=== PATIENT | female | born 1995 | race Caucasian/White ===

== ENCOUNTER 2020-04-10 14:49 | Emergency (ER) | payer OTHER, SELFPAY | END 2020-04-10 15:09 | disposition left against medical advice (07) | LOC: EXPBETH 14:54 | PROVIDERS: Emergency Provider Nurse Practitioner Family | DX: Z53.21 Procedure and treatment not carried out due to patient leaving prior to being seen by health care provider (principal) | CPT/HCPCS: 99199 ==

== ENCOUNTER 2025-02-06 02:00 | Day surgery (SDC) | payer OTHER, SELFPAY ==
--- NOTE | 2025-01-24 15:21 | SUR.PREOP ---
[facility] has started construction of its new state of the art ER which will open Spring 2026. With this, we anticipate parking may be a challenge for some our surgical patients and families. Parking spaces are limited but are available for all Surgical, obstetrics, and ER patients sharing this lot. If you arrive and find you are having a hard time finding a parking space, please note that we understand the challenges, please drive around the hospital and park near Hospital Entrance 1. When you enter this entrance, you can ask a volunteer to direct or take you back to the surgical waiting area to check in. We appreciate everyone?s understanding of these expected challenges while we build for your future. Report to the Outpatient Waiting Room, entrance under the green pavilion located off [address], at time _6am_ on date _02/06/25_. Planned Procedure Time: _730am_.? Time changes happen often and if your time is changed the preop area will call you the afternoon before. - You and your visitor will be asked to self-screen and do not enter if you have any COVID symptoms. Please call surgeon if you need to reschedule. - A mask is optional within the hospital at this time. Patients may have clear liquids (water, carbonated beverages, clear teas, apple juice) until 3 hours prior to surgery with a maximum of 20 ounces. - No food from midnight until time of surgery and no smoking, or chewing tobacco (or any form of nicotine). No chewing gum, candy or mints. Take only the following medications with a SIP of water on the morning of surgery: __None___ DO NOT STOP ANY OF YOUR OTHER PRESCRIPTION MEDICATIONS PRIOR TO SURGERY EXCEPT THE FOLLOWING Hold all vitamins and supplements for 3 days per anesthesiologist. Medications to discontinue per physician __None___ Date to take last dose__02/02/25___ Please no make-up, nail hungarian, hairspray, perfume, deodorant, or body powder the day of surgery.? No jewelry (including any body piercings) or valuables the day of surgery, leave them at home.? Please take a shower or bath the night before, or the morning of, surgery with an antibacterial soap.? Wear comfortable, loose fitting clothing.? - Jewelry must be removed prior to entering the operating room.? Rings and piercings that are not removed may be cut off. - The hospital will not accept responsibility for valuables.? - Please leave all valuables, including medications, at home the day of surgery. If you are going home after surgery, a licensed bellman driver must drive you home.? - NO public transportation without another adult if you receive anesthesia. - We recommend that an adult stay with you for 24 hours following discharge. - We also recommend that you do not drive, make important decision, drink alcoholic beverages, or take any drugs that were not prescribed by your health care provider for at least 24 hours after your discharge time. Follow any additional instructions given to you from your surgeon. Telephone instructions given to _Morgan__and asked if any additional questions and then verbalized understanding. Patient advised to call surgeon office or pre surgery nurse liaison [phone] if any additional questions.
[2025-01-24 15:50] VITALS: BMI 24.3
[2025-02-06] VITALS (10 sets, daily range): BP systolic 92–106; BP diastolic 44–64; PULSE 76–93; RESP 13–19; TEMP 36.3–36.6; O2SAT 96–100
--- OUTSIDE RECORDS SUMMARY | 2025-02-06 03:10 | XMS_ITS | Clinical Summary ---
Author Organization [facility] Address [address] [place] [address] Care Team Providers Care Production Operator Name Role Phone José Taylor MD Primary Care Provider Source Comments [facility],non-owned Affiliates and Associated Physician Practices is amultiple site organization consisting of ambulatory clinics and hospital sitesin [place], [place], [place] and [place]. This disclosure is being madepursuant to the Care Everywhere program and may not contain all information available regarding this patient. Last updated 17.[facility] Allergies No known active allergies Medications * Be aware that medications may not be up to date on this document. Alwaysverify current medications with the patient. COPPER PO was placed case briefer 10/20/2012 Active benzonatate (TESSALON) 200 MG capsule Take 1 capsule by mouth 3 times daily as needed for Cough 30 capsule 03/20/2018 Active Social History Tobacco Use Types Packs/Day Years Used Date Smoking Tobacco: Never Assessed Comments Unknown Sex and Gender Information Value Date Recorded Sex Assigned at Not on file Legal Sex Female 5:38 PM PERSONNEL COUNSELOR Gender Identity Not on file Sexual Orientation Not on file Last Filed Vital Signs Vital Sign Reading Time Taken Comments Blood Pressure 100/62 03/20/2018 11:16 AM PERSONNEL COUNSELOR Pulse 85 03/20/2018 11:16 AM PERSONNEL COUNSELOR Temperature 36.8 C (98.2 F) 03/20/2018 11:16 AM PERSONNEL COUNSELOR Respiratory Rate - - Oxygen Saturation 98% 03/20/2018 11:16 AM PERSONNEL COUNSELOR Inhaled Oxygen Concentration - - Weight 68 kg (150 lb) 03/20/2018 11:16 AM PERSONNEL COUNSELOR Height 170.2 cm (5' 7) 03/20/2018 11:16 AM PERSONNEL COUNSELOR Body Mass Index 23.49 03/20/2018 11:16 AM PERSONNEL COUNSELOR Plan of Treatment Health Maintenance Due Date Last Done Comments HIV SCREENING 2008 HEPATITIS C SCREENING 10/10/2011 DTAP/TDAP/TD VACCINES (1 - Tdap) 2012 HEPATITIS B VACCINE (1 of 3 - 19+ 3-dose series) 2012 PAP SMEAR 2014 HPV VACCINE (1 - 3-dose SCDM series) 2020 Cervical Cancer Screening 10/15/2023 PAP with HPV 10/15/2023 DEPRESSION SCREENING 03/22/2024 COVID-19 VACCINE (1 - 2024-2 6 season) 2024 INFLUENZA VACCINE (#1) 2024 ZOSTER VACCINE (1 of 2) 10/15/2043 HIB VACCINE Aged Out No longer eligi ble based on patient's age to complete this topic MENINGOCOCCAL (Group B) VACC INE SHARED DECISION-MAKING Aged Out No longer eligibl e based on patient's age to complete this topic MENINGOCOCCAL GROUPS A/C/Y/W VACCINE Aged Out No longer eligible b ased on patient's age to complete this topic PNEUMOCOCCAL VACCINE Aged Out No long er eligible based on patient's age to complete this topic Insurance [facility] Care Teams Production Operator Relationship Specialty Start Date End Date José Taylor MD [address] [place] [address] PCP - General Internal Medicine 03/20/18
--- OUTSIDE RECORDS SUMMARY | 2025-02-06 03:11 | XMS_ITS | Encounter Summary ---
Author Organization [facility] Healthcare Address [address] [place] [address] Care Team Providers Care Muck Farmer Name Role Phone Hal Clarke MD Primary Care Provider [phone] Yoan Chirstianson MD Unavailable [phone] Luis Collins MD Unavailable Encounter Details Date Type Department Care Team (Late st Contact Info) Description 01/08/2025 Results Follow-Up [facility] Medical Group Primary Care at [address] [id number] Hal Clarke MD [address] [place] [address] [address] [place] [address] CBC with auto differential, Comprehensive metabolic panel, Thyroid Function Travis, Additional followed-up results: 2 Social History Tobacco Use Types Packs/Day Years Used Date Smoking Tobacco: Never Smokeless Tobacco: Never Alcohol Use Standard Drinks/Week Comments Yes 0 (1 standard drink = 0.6 oz pur e alcohol) Humiliation, Afraid, Rape, and Kick questionnair e Answer Date Recorded Within the last year, have y ou been afraid of your partner or ex-partner? No 04/15/2020 Within the last year, have y ou been humiliated or emotionally abused in other ways by your partner or ex-partner? No Within the last year, have y ou been kicked, hit, slapped, or otherwise physically hurt by your partner or ex-partner? No 04/15/2020 Within the last year, have y ou been raped or forced to have any kind of sexual activity by your partner or ex-partner? No 04/15/2020 Social Connection and Isolation Panel Answer Date Recorded In a typical week, how many times do you talk on the phone with family, friends, or neighbors? More than three times a week 04/15/2020 How often do you get togethe r with friends or relatives? Three times a week 04/15/2020 Attends Taoism Services Not on file 04/15 Active Member of Clubs or Organizations Not on f ile 04/15/2020 Attends Club or Organization Meetings Not on vance e 04/15/2020 Are you , , di vorced, , never , or living with a partner? 04/15/2020 PHQ-2 Answer Date Recorded PHQ-2 Total Score (If total score is 3 or more points, staff should administer the PHQ-9) 0 09/18/2024 Housing Stability Vital Sign Answer James e Recorded In the last 12 months, was t here a time when you were not able to pay the mortgage or rent on time? No 04/15/2020 Number of Places Lived in the Last Year Not on f ile 04/15/2020 In the last 12 months, was t here a time when you did not have a steady place to sleep or slept in a skilled nursing (including now)? No 04/15/2020 Education Answer Date Recorded What is the highest level of school you have completed or the highest degree you have received? Bachelor's degree (e.g., BA, AB, BS) 04/15/2020 Comments No Sex and Gender Information Value Date Recorded Sex Assigned at Not on file Legal Sex Female 5:23 PM LEAF COVERER Gender Identity Female 02/03/2021 8:22 PM LEAF COVERER Sexual Orientation Straight 08/18/2020 8: 08 PM CDT Occupation Industry Job Start Date Job End Date accounting Not on file Not on file Not on file documented as of this encounter Functional Status * BP Location Answer Date of Assessment Author Left arm 01/08/2025 9:39 AM CDT Diane Merlos MA * BP Location Answer Date of Assessment Author Left arm 01/08/2025 9:39 AM CDT Diane Merlos MA documented as of this encounter Plan of Treatment Not on file documented as of this encounter Visit Diagnoses Not on filedocumented in this encounter Care Teams Muck Farmer Relationship Specialty Start Date End Date Hal Clarke MD [address] [place] [address] PCP - General Family Medicine 04/15/20 Yoan Christianson MD [address] [place] [address] Consulting Physician Obstetrics and Gynecology 07/23/20 Luis Collins MD [address] [place], [place] [id number] Consulting Physician General Surgery 07/23/20 documented as of this encounter
--- OUTSIDE RECORDS SUMMARY | 2025-02-06 03:11 | XMS_ITS | Clinical Summary ---
Author Organization [facility] [address] Address [address] [place] [address] Phone Care Team Providers Care Outboard Motor Inspector Name Role Phone Hal Clarke MD Primary Care Provider Yoan Christianson MD Unavailable [phone] Luis Collins MD Unavailable Allergies No known active allergies Medications No known medications Active Problems Problem Noted Date Diagnosed Date Preoperative evaluation to r edvine out surgical contraindication 01/08/2025 Annual physical exam 09/18/2024 Assessment & Plan (09/18/2024 1:30 PM CDT): -Recommended: Healthy diet. Avoiding junk food/fast food. -30 minutes of exercise most days of the week. Increase to 45 minutes for weight loss. Health Maintenance reviewed - due for tdap, recommended. -Influenza vaccine every year Recommend: - Topic Date Due DTaP/Tdap/Td Vaccine (8 - Td or Tdap) 08/20/2022 -F/u in 1 year for Annual PE or sooner if needed Thrombocytopenia 09/18/2024 Assessment & Plan (09/18/2024 1:30 PM CDT): Platelets have been in the 130's for last 3 years. Still 133. Stable. Asymptomatic. Not on any medications. Will check a peripheral smear. Consider future referral to hematology as needed. Orders: CBC with auto differential; Future peripheral smear, slide review, pathology - Miscellaneous Test; Future HIV 1/2 Antibody plus p24 Antigen Blood; Future Family history of Liana thyroiditis 08/21/19 21 Grade III hemorrhoids 05/02/2020 Overview (05/02/2020): Added automatically from request for surgery [id number] Assessment & Plan (07/18/2020 8:55 AM CDT): With her having bowel movements every 3rd day she likely had a slightly harder stool that cause a small mucosal break at 1 of the prior hemorrhoid excision sites. This is likely lead to some irritation and raw surface that has bled and now the intermittent clots. Everything else appears to be healing well. I am going to try her on a different medication to see if we can get her bowel movements a little bit more regular. She will do Sitz baths for comfort to try and help with the pain. I would like to give this a couple weeks to see if the mucosa will heal. If not we have discussed examining her under anesthesia and some other mucosal back shot. However without regular bowel movements I fear that would just break open again. She is going to check back in with us in a week or 2 to update us on how the spotting is going. Assessment & Plan (06/06/2020 12:59 PM CDT): Now that she is off full dose anticoagulation I expect the bleeding will continue to stop. We discussed last time that she had all 3 hemorrhoidal columns involved in all were significantly enlarged. Compared to initial on exam today things are markedly improved. There is still a small little remnant that I favor with time may continue to shrink down and not cause any further problems. She understands that the next few months if things continue to be bothersome we may have to go back to take this 1. For now continue stool softener to shoot for daily soft bowel movements without straining. Diet as tolerates. We will see her back again in 6 weeks to re- evaluate History of COVID-19 04/15/2020 Heterozygous factor V Leiden mutation 04/15/2020 Assessment & Plan (09/18/2024 11:23 AM CDT): Uses lovenox during and post-op. She is planning an abdominoplasty and breast augmentation in January with Dr. Russell at [place]. Will need to start lovenox again post surgery. [facility] will be contacting us for directions on lovenox. Assessment & Plan (07/23/2020 9:28 AM CDT): Add low-dose aspirin (81 mg daily), with caveats: low quality evidence supporting this (not as much research showing decreased DVT risk supporting adding it for heterozygous Factor V Leiden), may increase bruising, and if there is bleeding it may worsen it. Assessment & Plan (04/25/2020 1:58 PM ANIMAL KEEPER HEAD): I will discuss with her primary care physician if they would like any form of anticoagulation in the mary lou or postoperative time periods Resolved Problems Problem Noted Date Diagnosed Date Resolved Date Dizziness 01/02/2021 09/18/2024 Assessment & Plan (01/02/2021 1:06 PM CDT): I do wonder if it is a migraine-equivalent. This will need to be considered, though I'm not convinced that is what is happening. For start, we will check thyroid and blood panels again. Neuroimaging may be needed eventually, especially if there is a worsening, but right now I am leaning against. Slow transit constipation 11/26/2020 Assessment & Plan (11/26/2020 1:28 PM CDT): Advising starting a probiotic supplement Advise also increase fiber intake, the goal would be 25-35 g per day. Difficult goal, to be sure. Continuing Linzess 145 mg daily Rash 11/26/2020 09/18/2024 Assessment & Plan (11/26/2020 1:28 PM CDT): If rash starts to resume, we will try to resume oral steroids at a longer taper and refer to dermatology. The area noted on the ankle cells itself as a tinea infection, continue Lotrisone x 4 weeks total. If not improving, may need biopsy Hypotension 08/22/2020 09/18/2024 Assessment & Plan (02/07/2021 1:53 PM ANIMAL KEEPER HEAD): BP journal x 1 week Assessment & Plan (08/22/2020 9:28 AM CDT): BP is lower than usual baseline at first pass, but is better upon recheck. Advised to continue efforts to stay hydrated, perhaps small amount of salt in meals added might help (no more than a pinch here and there, or an extra teaspoon a day). Irritable bowel syndrome with constipation 07/23/2020 09/18/2024 Assessment & Plan (01/02/2021 1:07 PM CDT): Linzess is the established treatment, but higher dose might be necessary as it is not totally controlled. will consider referral to GI Assessment & Plan (07/23/2020 9:29 AM CDT): Family history positive Increase dietary fiber, slowly, with a goal to 20-30 grams per day. That should be spread through the day, rather than all at once. High-fiber options should be included with all meals (approximately 5-10 grams per meal, for instance). Continue good hydration (reported at 64 oz per day) Biliary dyskinesia 05/02/2020 Overview (05/02/2020): Added automatically from request for surgery [id number] Assessment & Plan (05/30/2020 9:58 AM ANIMAL KEEPER HEAD): Continue diet as tolerates. Continue Sitz baths for comfort. Given the size of her hemorrhoids I am not surprised she still having a little bit of spotting. We will see her back next week to reassess. Hold off on return to work until that time given her symptoms Postprandial RUQ pain 04/25/20202020 Assessment & Plan (04/25/2020 1:58 PM ANIMAL KEEPER HEAD): The patient has classic symptoms of gallbladder pathology. Just for completeness we will wait for her HIDA scan to be completed on February 10th. However even if this would return normal given the right upper quadrant pain associated with fatty meals with the radiation to the back she would benefit from cholecystectomy. Risks and benefits have been explained to include post cholecystectomy diarrhea. Bleeding hemorrhoid 04/25/2020 06/07/19 Assessment & Plan (04/25/2020 1:59 PM ANIMAL KEEPER HEAD): The patient has symptomatic hemorrhoidal disease. Given the large external components we will set her up for excision at the same time as the gallbladder. We have discussed about postoperative expectations and pain to be expected. All questions have been answered. 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 The literature states that it can lower the blood pressure in less than 1% of the patients to take it. Given that the mood is controlled, would hopefully not have to reduce or stop it. Assessment & Plan (05/01/2020 2:29 PM ANIMAL KEEPER HEAD): Staying on current regimen Valerian and melatonin are helping. I may want to discontinue the melatonin in 2 months Surgery being planned as well, should be low risk Viral upper respiratory tract infection 12/31/2016 04/15/2020 Neck pain 09/28/2015 04/15/2020 Overview (06/26/2016): Cervicalgia Mass of breast 05/17/2015 09/18/2024 Encounters Date Type Department Care Team Description 01/25/2025 Telephone [facility] Primary Care at [address] [address] Hal Clarke MD Medical Records Request 01/08/2025 10:15 AM CDT Lab [address] [address] Preoperative evaluation to rule out surgical contraindication; Bradycardia; Screening for thyroid disorder 01/08/2025 10:13 AM CDT - 01/08/2025 11:59 PM CDT Hospital Encounter [address] [address] Discharge Disposition: Discharge to home or self care 01/08/2025 9:30 AM CDT Office Visit [facility] Primary Care at [address] [address] Hal Clarke MD Preoperative evaluation to rule out surgical contraindication (Primary Dx); Bradycardia; Screening for thyroid disorder 01/08/2025 Results Follow-Up [facility] Primary Care at [address] [address] Hal Clarke MD CBC with auto differential, Comprehensive metabolic panel, Thyroid Function [place], Additional followed-up results: 2 from Last 3 Months Immunizations Immunization Administration Dates Next Due DTP 06/03/1998, 6,04/10/1994,02/09,1993 HPV, Quadrivalent 05/07/2011,01/08/2011,11/14/19 11 Hep B, Adolescent or Pediatric 07/10/1994,1993,1993 Hib (HbO) 04/16/1995, 5,02/09/1994,12/12 Influenza, Quadrivalent, Spl it, Preservative Free, Intramuscular 02/04/2021,12/15/2016 Influenza, Split 02/08/2013 Influenza, Unspecified 04/15/2020(Deferred: Loren ent Refused) MMR 06/03/1998,01/15/1995 Meningococcal Polysaccharide (Menomune) 07/08/2005 OPV 06/03/1998, 5,02/06/1994,12/12 Tdap 08/20/2012,07/27/2007 Varicella 10/25/2006,10/16/1996 Surgical History Surgery Date Site/Laterality Comments OTHER SURGICAL HISTORY 03/22/2013 - 03/21/2014 TONSILL/ ADENOIDECTOMY TONSILLECTOMY 03/22/2013 - 03/21/2014 Bilateral SECTION 03/22/2012 - 03/21/2013 CHOLECYSTECTOMY 05/22/2020 HEMORRHOID SURGERY 05/22/2020 Medical History Medical History Date Comments Factor 5 Leiden mutation, heterozygous 2012 Hemorrhoids History of COVID-19 04/15/2020 Family History Medical History Relation Name Comments Hyperlipidemia Father Dad Hyperlipidemi a; Hypertension Father Dad Hypertension; Diabetes Maternal Grandfather Grandma C Diabete s mellitus; Hypertension Maternal Grandfather Grandma C Hyperte nsion; Bleeding Disorder Maternal Grandmother Grandma C Diabetes Maternal Grandmother Grandma C Diabete s mellitus; Asthma Mother Mom Asthma; Hyperlipidemia Mother Mom Hyperlipidemi a; Hypothyroidism Mother Mom Irritable bowel syndrome Mother Mom Colon cancer Other Liana's thyroiditis Other cous in, aunt Coronary artery disease Paternal Grandfather Grandpa Coronary artery disease; Diabetes Paternal Grandfather Grandpa Diabete s mellitus; COPD Paternal Grandmother Grandma Diabetes Paternal Grandmother Grandma Diabete s mellitus; Heart disease Paternal Grandmother Grandma Heart disease; Hypertension Paternal Grandmother Grandma Hyperte nsion; obese Sister 1 Depression Sister 2 Younger sister Relation Name Status Comments Father Dad Maternal Grandfather Grandma C Maternal Grandmother Grandma C Mother Mom Other Paternal Grandfather Grandpa Alive Paternal Grandmother Grandma Sister 1 Alive Sister 2 Younger sister Alive Social History Tobacco Use Types Packs/Day Years Used Date Smoking Tobacco: Never Smokeless Tobacco: Never Tobacco Cessation:Counseling Given: Not Answered Alcohol Use Standard Drinks/Week Comments Yes 0 [...] relatives? Three times a week 04/15/2020 Attends [employer] Services Not on file 04/15 Active Member [...] place to sleep or slept in a custodial (including now)? No 04/15/2020 Education Answer Date Recorded What is the highest level of school you have completed or the highest degree you have received? 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 Not on file Not on file Not on file Obstetrics History Para Term AB IAB SAB Ectopic Multiple Livin g Live Births 1 1 1 1 2 2 Date Outcome GA Total Labor Labor/2nd/3rd Weight Sex Type Anes PTL Martine A1 A5 Name Clin 2013 F Living 2013 F Y Living Complications:Factor 5 Leide n mutation, heterozygous Last Filed Vital Signs Vital Sign Reading Time Taken Comments Blood Pressure 110/70 01/08/2025 9:39 AM CDT Pulse 64 01/08/2025 9:39 AM CDT Temperature 37.2 C (98.9 F) 01/08/2025 9:39 AM CDT Respiratory Rate 16 01/08/2025 9:39 AM CDT Oxygen Saturation 98% 01/08/2025 9:39 AM CDT Inhaled Oxygen Concentration - - Weight 73.5 kg (162 lb) 01/08/2025 9:39 AM CDT Height 170.2 cm (5' 7) 01/08/2025 9:39 AM CDT Body Mass Index 25.37 01/08/2025 9:39 AM CDT Plan of Treatment Health Maintenance Due Date Last Done Comments DTaP/Tdap/Td Vaccine (8 - Td or Tdap) 08/20/2022 08/20/2012, 07/27/2007, 06/03/1998, Additional history exists Cervical Cancer Screening 02/16/2023 02/16/2022 Influenza Vaccine (#1) 2024 , 12/15/2016, 02/08/2013 Depression Screening 09/18/2025 09/18/2024, 11/25/2021, 12/30/2020, Additional history exists Regular Well Visit/Exam 18-64 09/18/2025 09/18/2024 Covid-19 Vaccine ( season) 2026 11/14/2020, 10/24/2020 Postponed from 11/20/2024 (Patient declined, but will receive in the future) Hepatitis B Screening Completed 07/10/1994 , 1993, 1993 Varicella Vaccines Completed 10/25/2006, 10/16/1996 HPV Vaccines Completed 05/07/2011, 12/21, 11/13/2010 Hepatitis C Screening Completed 09/18/2024 Pneumococcal vaccine <65 Aged Out No longer eligible based on patient's age to complete this topic Procedures Procedure Name Priority Date/Time Associated Diagnosis Comments EGFR Routine 01/08/2025 10:34 AM CDT Preoperative evaluation to rule out surgical contraindication DIFFERENTIAL AUTO Routine 01/08/2025 10: 34 AM CDT Preoperative evaluation to rule out surgical contraindication THYROID FUNCTION CASCADE Routine 01/08/2025 10:34 AM CDT Bradycardia Screening for thyroid disorder COMPREHENSIVE METABOLIC PANEL Routine 01/08/2025 10:34 AM CDT Preoperative evaluation to rule out surgical contraindication CBC WITH AUTO DIFFERENTIAL Routine 01/08/2025 10:34 AM CDT Preoperative evaluation to rule out surgical contraindication XR CHEST PA LATERAL 2 VIEWS Routine 01/08/2025 10:31 AM CDT Preoperative evaluation to rule out surgical contraindication ECG 12-LEAD Routine 01/08/2025 10:04 AM CDT Bradycardia HEPATITIS C ANTIBODY Routine 09/18/2024 11:28 AM CDT Need for hepatitis C screening test Encounter for hepatitis C screening test for low risk patient HM PAP SMEAR Routine 02/16/2022 from Last 3 Months or Most Recently Relevant to Health Maintenance Results * eGFR (01/08/2025 10:34 AM CDT) eGFR >90 >=60 mL/min/1. 73 m2 Comment: Interpretive Data Reference Interval Normal >/= 90 mL/min/1.73m2 Mildly decreased* 60 - 89 mL/min/1.73m2 Mildly to moderately decreased 45 - 59 mL/min/1.73m2 Moderately to severely decreased 30 - 44 mL/min/1.73m2 Severely decreased 15 - 29 mL/min/1.73m2 Kidney Failure < 15 mL/min/1.73m2 *Relative to young adult level Estimated glomerular filtration rate is determined by the 2020 CKD-EPI equation recommended by the National Kidney Foundation (A Unifying Approach to GFR Estimation: Recommendations of the NKF-ASK Task Force on Reassessing the Inclusion of Race in Diagnosing Kidney Disease, JASN 2020). The CKD-EPI equation should not be used for patients with unstable renal function and has not been validated in children and those over 70. Current interpretive data was last reviewed 2021. Blood 01/08/2025 10:3 4 AM CDT 01/08/2025 3:31 PM CDT us Hal Clarke MD LAB BLOOD ORDERABLES Final Result [facility] [address] [facility] [place] [address] * Differential, auto (01/08/2025 10:34 AM CDT) Neutrophil abs 3.20 1.50 - 6.50 K/cumm Imm gran abs 0.01 0.00 - 0.10 K/cumm [facility] Lymphocyte abs 2.23 0.80 - 3.30 K/cumm [facility] Monocyte abs 0.38 0.20 - 0.80 K/cumm [facility] Eosinophil abs 0.08 0.00 - 0.50 K/cumm [facility] Basophil abs 0.07 0.00 - 0.10 K/cumm [facility] Neutrophil pct 53.5 % [facility] Comment: Interpretive Data Percent cell count reference ranges are not reported, since discordance with absolute values may lead to misinterpretation of CBC data. Current Interpretive Data was last revised on 2017. Imm gran pct 0.2 % [facility] Comment: Interpretive Data Percent cell count reference ranges are not reported, since discordance with absolute values may lead to misinterpretation of CBC data. Current Interpretive Data was last revised on 2017. Lymphocyte pct 37.4 % [facility] Comment: Interpretive Data Percent cell count reference ranges are not reported, since discordance with absolute values may lead to misinterpretation of CBC data. Current Interpretive Data was last revised on 2017. Monocyte pct 6.4 % [facility] Comment: Interpretive Data Percent cell count reference ranges are not reported, since discordance with absolute values may lead to misinterpretation of CBC data. Current Interpretive Data was last revised on 2017. Eosinophil pct 1.3 % [facility] Comment: Interpretive Data Percent cell count reference ranges are not reported, since discordance with absolute values may lead to misinterpretation of CBC data. Current Interpretive Data was last revised on 2017. Basophil pct 1.2 % [facility] Comment: Interpretive Data Percent cell count reference ranges are not reported, since discordance with absolute values may lead to misinterpretation of CBC data. Current Interpretive Data was last revised on 2017. Blood 01/08/2025 10:3 4 AM CDT 01/08/2025 3:33 PM CDT Hal Clarke MD LAB BLOOD ORDERABLES Final Result Performing Organization Address City/[facility] Co de Phone Number JADE [address] [address] * Thyroid Function [place] (01/08/2025 10:34 AM CDT) Pathologist [facility] TSH 2.25 0.30 - 4.20 mcIUnit/mL Blood 01/08/2025 10:3 4 AM CDT 01/08/2025 3:31 PM CDT Hal Clarke MD LAB BLOOD ORDERABLES Final Result Performing Organization Address [facility] de Phone Number [address] [address] * (ABNORMAL) CBC with auto differential (01/08/2025 10:34 AM CDT) [facility] WBC 5.97 3.80 - 9.90 K/cumm Hgb 14.5 11.9 - 15.5 g/dL [facility] Hct 43.2 35.6 - 45.5 % [facility] Plt 148(L) 150 - 400 K/cumm [facility] MPV 12.7(H) 9.1 - 12.3 fL [facility] RBC 4.66 3.90 - 5.20 M/cumm [facility] MCV 92.7 81.3 - 96.4 fL [facility] MCH 31.1 27.1 - 33.3 pg [facility] MCHC 33.6 32.3 - 35.7 g/dL [facility] RDW CV 12.3 11.1 - 14.9 % [facility] RDW SD 42.3 35.7 - 48.1 fL [facility] NRBC abs 0.00 0.00 - 0.01 K/cumm [facility] Blood 01/08/2025 10:3 4 AM CDT 01/08/2025 3:33 PM CDT Hal Clarke MD LAB BLOOD ORDERABLES Final Result Performing Organization Address City/[facility] Phone Number JADE [address] [facility] [place] [address] * Comprehensive metabolic panel (01/08/2025 10:34 AM CDT) Sodium 139 135 - 145 mmol/L Potassium, pl 4.1 3.3 - 4.9 mmol/L [facility] Chloride 104 97 - 110 mmol/L [facility] CO2 25 22 - 32 mmol/L [facility] Anion gap 10 2 - 15 mmol/L [facility] BUN 8 6 - 25 mg/dL [facility] Creatinine 0.69 0.60 - 1.10 mg/dL [facility] Glucose 99 70 - 199 mg/dL [facility] Comment: Interpretive Data Fasting glucose >/= 126 mg/dl is diagnostic for diabetes. Fasting is defined as no caloric intake for at least 8 hours. Fasting glucose between 100 mg/dl to 125 mg/dl is diagnostic of prediabetes. In a patient with classic symptoms of hyperglycemia or hyperglycemic crisis, a random glucose >/= 200 mg/dl is diagnostic for diabetes. In the absence of unequivocal hyperglycemia, results should be confirmed by repeat testing. The classification and Diagnosis of Diabetes Diabetes Care 202; 46: S19-S40. Current interpretive data was last revised 2022. Calcium 9.4 8.5 - 10.3 mg/dL [facility] Bilirubin, total 1.1 0.1 - 1.2 mg/dL [facility] Protein, pl 7.6 6.5 - 8.5 g/dL [facility] Albumin 4.9 3.5 - 5.0 g/dL [facility] Alk phos 70 40 - 130 Units/L [facility] ALT 14 7 - 45 Units/L [facility] AST 23 10 - 45 Units/L [facility] Blood 01/08/2025 10:3 4 AM CDT 01/08/2025 3:31 PM CDT Hal Clarke MD LAB BLOOD ORDERABLES Final Result [facility] [address] [facility] [place] [address] * XR Chest Pa Lateral 2 Views (01/08/2025 10:31 AM CDT) Anatomical Region Laterality Modality Body, Chest N/A Computed Radiogr aphy 01/08/2025 11:0 5 AM CDT Narrative 01/08/2025 11:06 AM CDT EXAM DESCRIPTION: XR CHEST PA LATERAL 2 VIEWS REASON FOR STUDY: Preoperative evaluation to rule out surgical contraindication TECHNIQUE: 2 radiographic view(s) of the chest. COMPARISON: None FINDINGS: LUNGS: No focal opacity, pleural effusion, or pneumothorax. HEART/MEDIASTINUM: Cardiac silhouette normal in size. Mediastinal and hilar contours appear normal. LINES/TUBES: None. BONES: No acute osseous abnormality. IMPRESSION: No acute cardiopulmonary abnormality. THIS IS AN ELECTRONICALLY VERIFIED FINAL REPORT 01/08/2025 11:06 AM - Electronically signed by Zoraida Angel M.D. TW T: Report ID: [id number] Reading Location: [id number] Procedure Note Zoraida Angel MD - 01/08/2025 EXAM DESCRIPTION: XR CHEST PA LATERAL 2 VIEWS REASON FOR STUDY: Preoperative evaluation to rule out surgical contraindication TECHNIQUE: 2 radiographic view(s) of the chest. COMPARISON: None FINDINGS: LUNGS: No focal opacity, pleural effusion, or pneumothorax. HEART/MEDIASTINUM: Cardiac silhouette normal in size. Mediastinal andhilar contours appear normal. LINES/TUBES: None. BONES: No acute osseous abnormality. IMPRESSION: No acute cardiopulmonary abnormality. THIS IS AN ELECTRONICALLY VERIFIED FINAL REPORT 01/08/2025 11:06 AM - Electronically signed by Zoraida Angel M.D. TW T: Report ID: [id number] Reading Location: [id number] us Hal Clarke MD IMG XR PROCEDURES Final Res ult * ECG 12-LEAD (01/08/2025 10:04 AM CDT) Narrative Hal Clarke MD - 01/08/2025 10:04 AM CDT Hal Clarke MD 01/08/2025 10:08 AM ECG 12 lead Date/Time: 01/08/2025 10:04 AM Performed by: Hal Clarke MD Authorized by: Hal Clarke MD Previous ECG: no previous ECG available Rhythm: sinus bradycardia Rate: normal QRS axis: normal Conduction: conduction normal ST Segments: ST segments normal T Waves: T waves normal Clinical impression: non-specific ECG Hal Clarke MD ECG ORDERABLES Edited Resu lt - Final * Hepatitis C antibody Blood (09/18/2024 11:28 AM CDT) Hep C Ab Nonreactive Nonreactive Comment: Interpretive Data Nonreactive: Antibodies to HCV not detected. Does NOT exclude the possibility of recent exposure to HCV. Equivocal: Equivocal for HCV antibodies. Supplemental molecular testing will be automatically performed to determine infection status in accordance with current CDC screening recommendations. Reactive: Positive for HCV antibodies. This may represent current or past HCV infection. Supplemental molecular testing will be automatically performed to determine current infection status in accordance with current CDC screening recommendations. Interpretive data was last revised on 2019. Blood 09/18/2024 11:2 8 AM CDT 09/18/2024 8:31 PM CDT Hyacinth Mcnair NP LAB MICROBIOLOGY - GENERAL [place] [id number] Janel Workman [place] [address] * HM PAP SMEAR (02/16/2022) Historical Provider HEALTH MAINTENANCE Final Result from Last 3 Months or Most Recently Relevant to Health Maintenance Insurance [facility] CHOICE PLUS [employer] COVENTRY HMO/POS Care Teams Outboard Motor Inspector Relationship Specialty Start Date End Date Hal Clarke MD [address] [place] [address] PCP - General Family Medicine 04/15/20 Yoan Christianson MD [address] [place] [address] Consulting Physician Obstetrics and Gynecology 07/23/20 Luis Collins MD [address] [facility] [address] [place] [address] Consulting Physician General Surgery 07/23/20
--- OUTSIDE RECORDS SUMMARY | 2025-02-06 03:11 | XMS_ITS | Clinical Summary ---
Author Organization [facility] Address [address] [place] [address] Care Team Providers Care Literacy Teacher Name Role Phone Unavailable Primary Care Provider Unavailabl e Social History Tobacco Use Types Packs/Day Years Used Date Smoking Tobacco: Never Assessed Comments Unknown Sex and Gender Information Value Date Recorded Sex Assigned at Not on file Legal Sex Female 10:33 AM SEED [employer] Gender Identity Not on file Sexual Orientation Not on file Plan of Treatment Health Maintenance Due Date Last Done Comments Hepatitis C Virus (HCV) Screening 1993 TdaP Immunization 1993 Hepatitis B Immunization (1 of 3 - 19+ 3-dose series) 2012 Pap Smear 2014 Human Papillomavirus (HPV) Immunization (1 - 3-dose SCDM series) 2020 Cervical Cancer Screening (CCS) 10/15/2023 HPV/Cotest 10/15/2023 Influenza Immunization (#1) 2024 12/15/2016 SARS-COV-2 Immunization ( season) 2024 Respiratory Syncytial Virus (RSV) Immunization (Adult) (1 - 1-dose 75+ series) 2068 Meningococcal Immunization (ACWY) Aged Out No longer eligible based on patient's age to complete this topic Pneumococcal Immunization Combined Aged Out No longer eligible based on patient's age to complete this topic Rotavirus Immunization Aged Out No lo nger eligible based on patient's age to complete this topic
[2025-02-06] MEDS: LACTATED RINGERS 1,000 ML 30 ML IV CONT ×2 (06:35→14:23)
[2025-02-06] MEDS: TRANEXAMIC ACID 1,000MG/ISO100 1,000 MG/100 ML BAG 200 MG IVPB (06:35)
[2025-02-06] MEDS: SCOPOLAMINE 1 MG PATCH 1 PATCH TRANSDERM (06:42)
--- NOTE | 2025-02-06 06:43 | P.PNAN_ITS ---
Anes - Initial Pre Proc Eval Procedure: Operation Date: 02/06/25 07:30 Proposed Procedures p Abdominoplasty with Liposuction, - Wale Ricketts MD s Bilateral Breast Augmentation, - Wale Ricketts MD s Bilateral Breast Mastopexy - Wale Ricketts MD Date/Time: 02/06/25 06:43 Surgeon: Wale Ricketts MD Pre Op Diagnosis: skin laxity, breast ptosis, micromastia Patient Data Age: 29 Gender: F Height: 1.73 m Weight: 72.7 kg Allergies Allergy/AdvReac Type Severity Reaction Status Date / Time No Known Allergies Allergy Verified 01/24/25 15:44 Home Medications ?Medication ?Instructions ?Recorded ?Confirmed ?Type [id number] C 250 2 tablet PO DAILY PRN viru s 01/24/25 01/24/25 History mg-herbal no.124 8.875 mg chewable tablet (Airborne (ascorbic acid)) Laboratory Tests 02/06/25 06:14 Cotinine Negative Patient hx anesthesia problems: none Family hx anesthesia problems: none Results Review: All pre-operative results and documents have been reviewed as part of the pre- operative evaluation. [facility] Surgical History Surgical History (Updated 02/06/25 @ 06:44 by Reji Garcia MD) History of section Hx laparoscopic cholecystectomy Hx of tonsillectomy Social History Social History Smoking status: Never smoker Living arrangements: with family Spiritual care concerns: No Anes - Eval Final PreProcedure Day of Procedure 02/06/25 06:43 Patient weight: normal Heart: regular rate and rhythm Lungs: clear to auscultation Airway: Mallampati scale class II Neurological: alert and oriented Last oral intake: >/= 8 hours ASA classification: I Emergent: no Anesthetic plan: proceed Anesthesia type and monitoring: general ETT and standard monitoring Results Review: All pre-operative results and documents have been reviewed as part of the pre- operative evaluation. Informed Consent: The patient's anesthetic plan and its attendant risks and benefits were discussed with the patient/family/POA. Questions were solicited and answers provided to the satisfaction of the patient/family/POA.
--- NOTE | 2025-02-06 07:03 | WPDHPUPDATE1 ---
History and Physical Update Update Date/Time: 02/06/25 07:03 History and Physical has been reviewed, including an updated exam of the patient. There are NO changes in the patient's condition. Risks, benefits, and alternatives have been discussed and questions answered. Patient agrees to proceed with procedure.
--- NOTE | 2025-02-06 07:25 | P.OP_ITS ---
Procedure Note - Detailed Date of Procedure 02/06/25 Pre-op Diagnosis skin laxity, breast ptosis, micromastia Post-op Diagnosis Same Procedure Performed 1. Bilateral augmentation mastopexy 2. Progressive tension abdominoplasty with suction lipectomy Surgeon Wale Ricketts MD Anesthesia General Findings Inverted T Superior pedicle Bilateral Stacy Dahl SoftTouch 405cc Right: EF# SSM-[id number] SN [id number] Left: EF# [id number] SN [id number] Tissue removed: 988 grams Lipoaspirate: 1,700 cc Diastasis: 7 cm Description of Procedure They are here today for the above procedures. Previously and again today the risks, benefits, alternatives were discussed in extensive detail. I wanted them to be very realistic about the risks involved as well as expectations. We discussed aftercare and what to monitor for. I was very upfront about the risks of wound breakdown leading to loss of skin, open wounds, and need for additional procedures with permanent abdominal deformity. We discussed DVT/PE risks and management. Made sure answered all of their questions to their satisfaction today and consent was obtained. They were marked in the preoperative holding area with their verification. The patient was taken to the operating room. Anesthesia was provided by a [facility]. A Gonzalez catheter was started. Placed prone on the operating room table with care taken to protect from injury. Prepped and draped in a standard sterile fashion. A surgical time-out was taken. Posterior Stab incisions were made and tumescent solution was infiltrated. Once adequate time was allowed for hemostasis a 5mm basket and 4mm jluis cannula were utilized to complete suction lipectomy based on S.A.F.E. technique in multiple planes and passes. Suction lipectomy continued to result based on pre-operative planning, intra-operative observation, and rolling pinch test which were in full agreement. Patient was then placed supine with care taken to protect from injury. Breast She was prepped and draped in a standard sterile fashion. Tumescent was utilized laterally to provide field block Tegaderm nipple Malagon were placed. A 15 blade used to make an incision just superior to the inframammary fold leaving a cusp of de-epithelized tissue at the t junction. Dissection was continued until the chest wall as identified. I elevated a subfascial pocket in the appropriate dimensions based on our preoperative planning for the implant. I then copiously irrigated with saline solution and verified a strict hemostasis. Next the use a triple antibiotic and Betadine containing solution to irrigate the pocket. I washed my gloves with the triple antibiotic and Betadine solution. We washed the implant immediately upon opening it with this solution and only opened it when we needed it. I used implant funnel and no-touch technique. The implant was introduced into the pocket using the funnel. Having verified positioning of the implant this was closed using 2-0 PDS. I tailor tacked the breast into position. Placed her in a sitting position. Verified the nipple-areolar location based on preoperative planning as well as intraoperative observations and measurements in full agreement. Suction lipectomy was completed laterally with a 4mm jluis cannula. This was based on preoperative planning, intraoperative observation, and rolling pinch which was in full agreement. She was placed supine. I de-epithelialized the pedicle. I then removed the inferior central portion of the breast need making sure the implant was well protected. I elevated medial and lateral tissue flaps as well for planned closure. Secured the IMF with 2-0 PDS. I closed along the IMF with 2-0 PDS. Along the vertical with 2-0 PDS. I closed around the areola and the vertical incision with 3-0 Monocryl. 3-0 Stratafix along the IMF. I finally closed everything with running subcuticular 4-0 Monocryl and steri strips along the IMf / around the areola and Brijjits along the vertical. Abdomen I placed the patient in a flexed position to verify the upper and lower markings would reach. I then placed supine. A thorough abdominal examination was completed. Stab incisions were made and tumescent solution infiltrated. Stab incisions were made and tumescent solution was infiltrated. Once adequate time was allowed for hemostasis a 5mm basket and 4mm jluis cannula were uti lized to complete suction lipectomy based on S.A.F.E. technique in multiple planes and passes. Suction lipectomy continued to result based on pre-operative planning, intra-operative observation, and rolling pinch test which were in full agreement. A 10 blade was used to make the upper incision. I continued dissection down to the level of fascia. Elevated just what was necessary for repair of the diastasis. I then again flexed the bed to verify the upper skin flap would reach the lower markings without tension. Once verified I placed her supine once again and a 10 blade used to make the lower incision. I elevated up to level the umbilicus and left the umbilicus intact on a well-vascularized stalk. The intervening tissue was removed. A 2 mm blunt cannula with 0.5% bupivacaine was injected deep to the fascia bilaterally. I plicated the diastasis recti using 0 PDO Stratafix barbed suture. This was in 2 separate layers using 2 separate sutures as well. I also repaired lateral to the rectus using two layers of 0 PDO Stratafix. The patient was flexed and starting from superior to inferior began plication using 2-0 Vicryl to obliterate all space in a standard progressive tension fashion. At the umbilicus I marked out the location of the skin and inset this with 3-0 Monocryl and 4-0 Vicryl. I continued the remainder of the plication using 2-0 Vicryl until I reached my lower planned scar line. I trimmed any excess skin of the upper flap making sure this was a tension-free closure. 15 Marbin drain was placed. I then approximated using a 3 point suture with 2-0 Vicryl followed by 2-0 PDO Stratafix, 3-0 Stratafix ,running subcuticular 4-0 Monocryl, and tissue glue. Fluffs, abdominal binder, and a surgical bra were placed. The patient was transferred to the bed in a flexed position. [place] and taken to the PACU without difficulty. All instrument and sponge counts were correct at the end of the case. Estimated Blood Loss 75 Drains Yes (15 Marbin) Packing No Pathology None sent Complications No immediate complications Condition Stable Disposition PACU
[2025-02-06 07:28] LABS: BEDSIDEPREGUCG Negative (Negative)
[2025-02-06] MEDS: BUPIVACAINE/EPINEPHRINE 0.5% 50 ML VIAL 60 ML INFILTRATE (07:34)
[2025-02-06] MEDS: LACTATED RINGERS IRRIG 1,000 ML, LIDOCAINE 1% LOCAL INJ 50 ML, EPINEPHrine HCL INJ 1 MG... INFILTRATE (07:34)
[2025-02-06] MEDS: NACL 0.9% IRRIG POUR BOTTLE 900 ML, GENTAMICIN SULFATE INJ 160 MG, ceFAZolin 2 GM, POVI... IRRIGATION (07:34)
[2025-02-06] MEDS: ceFAZolin 2 GM in SODIUM CHLORIDE 0.9% IV 50 ML 100 ML IVPB (07:34)
[2025-02-06] MEDS: ONDANSETRON INJ 4 MG/2 ML VIAL IV PUSH (14:47)
[2025-02-06] MEDS: fentaNYL CITRATE INJ (*CRX) 100 MCG/2 ML VIAL 25 MCG IV PUSH ×4 (14:50→15:18)
[2025-02-06] MEDS: oxyCODONE HCL (*CRX) 5 MG TAB IR PO (15:59)
== END 2025-02-06 16:53 | disposition home or self-care (01) ==
PROVIDERS: PCP Family Medicine; Visit Provider Surgery Plastic and Reconstructive Surgery
PROC: (CPT 19325; principal; 2025-02-06 07:30)
PROC: (CPT 19325; 2025-02-06 07:30)
PROC: (CPT 19316; 2025-02-06 07:30)
DX: Z41.1 Encounter for cosmetic surgery (principal); N64.81 Ptosis of breast; N64.82 Hypoplasia of breast; D68.51 Activated protein C resistance; Z79.1 Long term (current) use of non-steroidal anti-inflammatories (NSAID); Z79.891 Long term (current) use of opiate analgesic; Z98.890 Other specified postprocedural states; Z90.49 Acquired absence of other specified parts of digestive tract
CPT/HCPCS: 19325; 19316; 15830; 15847; 15877; 80307; J0690; A9270; J0166; J1100; J1171; J1200; J1580; J2003; J2250; J2405; J2704; J3010; J3290; J7120